=== PATIENT | female | born 1955 | race Two or more races ===

== ENCOUNTER 2017-08-15 17:47 | Inpatient (IN) | payer OTHER ==
[~2017-08-15] VITALS: Ht 165.1 cm; Wt 76.7 kg
--- NOTE | 2017-08-15 18:02 | NUR ---
BB DAUGHTER FROM HOME FOR DIZZINESS X 10AM TODAY, N/V, FATIGUE. ASSISTED PATIENT TO ED BED 07 VIA WHEELCHAIR. ALL NEEDS ARE ATTENDED, KEPT WARM AND COMFORTABLE. PENDING ER MD EVALUATION
[2017-08-15] MEDS ORDERED: MECLIZINE HCL 25 MG TABLET ONE (18:24)
[2017-08-15] MEDS ORDERED: ONDANSETRON 4 MG TAB.RAPDIS ONE (18:25)
--- NOTE | 2017-08-15 18:28 | NUR ---
PT TAKEN TO CT.
[2017-08-15] MEDS ORDERED: ONDANSETRON 4 MG TAB.RAPDIS SL ONE (18:30)
[2017-08-15] MEDS ORDERED: MECLIZINE HCL 12.5 MG TABLET PO ONE (18:30)
--- NOTE | 2017-08-15 18:30 | NUR ---
SOLAR TECHNICIAN AT FOR BLOOD DRAW.
[2017-08-15 18:41] LABS: BASOPHILS % (AUTO) 0.4 % (0.0-2.0); EOSINOPHILS # (AUTO) 0.1 /CMM (0.0-0.7); EOSINOPHILS % (AUTO) 0.8 % (0.0-6.0); HEMATOCRIT 41 % (33-45); HEMOGLOBIN 14.2 g/dL (11.5-14.8); LYMPHOCYTES # (AUTO) 1.7 /CMM (0.8-4.8); LYMPHOCYTES % (AUTO) 19.1 % (20.0-44.0); MEAN CORPUSCULAR HEMOGLOBIN 28 PG (26.0-33.0); MEAN CORPUSCULAR HGB CONC 35 g/dl (31.0-36.0); MEAN CORPUSCULAR VOLUME 81 fL (82-100); MONOCYTES # (AUTO) 0.2 /CMM (0.1-1.30); MONOCYTES % (AUTO) 2.5 % (2.0-12.0); NEUTROPHILS # (AUTO) 6.8 /CMM (1.8-8.9); NEUTROPHILS % (AUTO) 77.2 % (43.0-81.0); PLATELET COUNT (AUTO) 289 /CMM (150-450); RDW COEFFICIENT OF VARIATION 14.1 (11.5-15.0); RED BLOOD CELL COUNT(AUTO) 5.05 MIL/uL (4.0-5.2); WHITE BLOOD COUNT (AUTO) 8.8 K/uL (4.3-11.0)
--- NOTE | 2017-08-15 19:13 | NUR ---
RECEIVED REPORT FROM DAREN BARRETO FOR [facility]
[2017-08-15 19:14] LABS: CARBON DIOXIDE 24 mmol/L (21-32); CHLORIDE 107 mmol/L (98-107); CREATININE 1.1 mg/dL (0.6-1.3); GLUCOSE 121 mg/dL (74-106); POTASSIUM 4.2 mmol/L (3.5-5.1); SODIUM SERUM 141 mmol/L (136-145); UREA NITROGEN, BLOOD 20 mg/dL (7-18)
[2017-08-15 19:20] LABS: ALANINE AMINOTRANSFERASE 17 U/L (12-78); ALBUMIN 3.7 g/dL (3.4-5.0); ALKALINE PHOSPHATASE 71 U/L (46-116); ASPARTATE AMINOTRANSFERASE 17 U/L (15-37); BILIRUBIN,TOTAL 0.3 mg/dL (0.2-1.0); TOTAL PROTEIN, SERUM 8.4 g/dL (6.4-8.2)
[2017-08-15] MEDS ORDERED: ONDANSETRON HCL/PF 4 MG/2 ML VIAL ONE (19:21)
[2017-08-15 19:22] LABS: TROPONIN I < 0.017 ng/mL (0.00-0.056)
[2017-08-15] MEDS ORDERED: ONDANSETRON HCL/PF 4 MG/2 ML VIAL IVP ONE (19:30)
--- NOTE | 2017-08-15 19:59 | NUR ---
PT ASSIGNED TO [facility] 308-1
--- NOTE | 2017-08-15 20:19 | NUR ---
GAVE REPORT TO JESSI BARRETO FOR PT. GOING TO TELE ROOM 309-1
[2017-08-15] MEDS ORDERED: ACETAMINOPHEN 325 MG TABLET PO PRN (20:30)
[2017-08-15] MEDS ORDERED: ONDANSETRON HCL/PF 4 MG/2 ML VIAL IVP PRN (20:30)
[2017-08-15] MEDS ORDERED: LISI40TA4 PO (20:30)
[2017-08-15] MEDS ORDERED: IV NS 0.9% 1,000 ML IV PRN (20:30)
[2017-08-15 21:00] VITALS: BP 160/90
--- NOTE | 2017-08-15 23:00 | NUR ---
BUSINESS ACCOUNT MANAGER NOTE: RECEIVED PATIENT FROM ER, NO ACUTE DISTRESS NOTED, FAMILY AT BEDSIDE. BREATHING EVEN AND UNLABORED, NO SOB NOTED. IV TO LAC IN PLACE. ORIENTED PATIENT TO ROOM AND USE OF CALL LIGHT. BED LOCKED AND IN LOWEST POSITION, CALL LIGHT IN REACH. WILL CONTINUE TO MONITOR.
[2017-08-16] VITALS: BP 149/84
[2017-08-16 04:00] VITALS: BP 144/80
[2017-08-16 06:25] LABS: BASOPHILS # (AUTO) 0.1 /CMM (0.0-0.2); BASOPHILS % (AUTO) 0.9 % (0.0-2.0); EOSINOPHILS # (AUTO) 0.3 /CMM (0.0-0.7); EOSINOPHILS % (AUTO) 2.9 % (0.0-6.0); HEMATOCRIT 38 % (33-45); HEMOGLOBIN 12.7 g/dL (11.5-14.8); LYMPHOCYTES # (AUTO) 2.6 /CMM (0.8-4.8); LYMPHOCYTES % (AUTO) 27.2 % (20.0-44.0); MEAN CORPUSCULAR HEMOGLOBIN 28 PG (26.0-33.0); MEAN CORPUSCULAR HGB CONC 34 g/dl (31.0-36.0); MEAN CORPUSCULAR VOLUME 83 fL (82-100); MONOCYTES # (AUTO) 0.5 /CMM (0.1-1.30); MONOCYTES % (AUTO) 5.6 % (2.0-12.0); NEUTROPHILS % (AUTO) 63.4 % (43.0-81.0); PLATELET COUNT (AUTO) 255 /CMM (150-450); RDW COEFFICIENT OF VARIATION 15.1 (11.5-15.0); RED BLOOD CELL COUNT(AUTO) 4.53 MIL/uL (4.0-5.2); WHITE BLOOD COUNT (AUTO) 9.5 K/uL (4.3-11.0)
--- NOTE | 2017-08-16 06:45 | NUR ---
HOGSHEAD HEAD MATCHER NOTE: PATIENT RESTING IN BED, NO ACUTE DISTRESS NOTED, FAMILY AT BEDSIDE. BREATHING EVEN AND UNLABORED, NO SOB NOTED. IV TO LAC IN PLACE, INFUSING NS AT 80 ML/HR. BED LOCKED AND IN LOWEST POSITION, CALL LIGHT IN REACH. WILL ENDORSE TO DAY NURSE TO CONTINUE WITH PLAN OF CARE.
[2017-08-16 06:50] LABS: ALBUMIN 3.1 g/dL (3.4-5.0); BILIRUBIN,TOTAL 0.4 mg/dL (0.2-1.0); CALCIUM, SERUM 9.6 mg/dL (8.5-10.1); CREATININE 1.1 mg/dL (0.6-1.3); MAGNESIUM 1.8 mg/dL (1.8-2.4); PHOSPHORUS 3.9 mg/dL (2.5-4.9); POTASSIUM 3.9 mmol/L (3.5-5.1); TOTAL PROTEIN, SERUM 7.5 g/dL (6.4-8.2)
[2017-08-16 07:00] LABS: THYROID STIMULATING HORMONE 1.439 uIU/mL (0.358-3.74)
--- NOTE | 2017-08-16 07:30 | NUR ---
CABIN CLEANER NOTES PATIENT RECEIVED AWAKE, ALERT AND ORIENTED. VERBALLY RESPONSIVE AND RESPONDS TO VERBAL AND TACTILE STIMULI. ABLE TO MAKE NEEDS KNOWN AND FOLLOW SIMPLE INSTRUCTIONS. PATIENT BREATHING EVEN AND UNLABORED. NO SOB OR CONGESTION NOTED. IV SITE IN PLACE ON LEFT AC, NO BLEEDING OR SWELLING NOTED. WILL CONTINUE TO MONITOR. CALL LIGHT WITHIN EASY REACH
[2017-08-16 08:00] VITALS: BP 142/75
--- NOTE | 2017-08-16 10:00 | NUR ---
SECURITY REP NOTES INSERTED NEW IV SITE ON LEFT FOREARM, # 22 NEEDLE, 1 ATTEMPT, INTACT AND PATENT, NO SWELLING OR IRRITATION NOTED. ONGOING IV HYDRATION WITH NS AT 80 CC/HR. REMOVED IV FROM LEFT AC. MINIMAL BLEEDING NOTED, DRESSING APPLIED. NO COMPLAIN OF PAIN OR DISCOMFORT. WILL CONTINUE TO MONITOR.
[2017-08-16 16:00] VITALS: BP 162/91
--- NOTE | 2017-08-16 18:25 | NUR ---
MS RN NOTES PATIENT TRANSFERRED ROOM, MOVED FROM 309-1 TO 205-2. ASSISTED WITH TRANSFER. NO INJURY DURING TRANSFER. PATIENT REMAINS AWAKE, ALERT, VERBALLY RESPONSIVE AND RESPONDS TO VERBAL AND TACTILE STIMULI. BED LOCKED AND IN LOW POSITION, BILATERAL UPPER SIDE RAILS UP AND LOCKED. WILL CONTINUE TO MONITOR
--- NOTE | 2017-08-16 19:28 | NUR ---
MS RN NOTES PATIENT RESTING INSIDE ROOM, AWAKE, ALERT AND ORIENTED, VERBALLY RESPONSIVE AND RESPONDS TO VERBAL AND TACTILE STIMULI, ABLE TO MAKE NEEDS KNOWN AND FOLLOW SIMPLE INSTRUCTIONS. NO SOB OR ACUTE DISTRESS NOTED AT THIS TIME. DENIES ANY PAIN OR DISCOMFORT. NO CHANGES IN LOC NOTED. PATIENT CALM AND RELAXED. WILL CONTINUE TO MONITOR. RESIDENT KEPT CLEAN, DRY AND COMFORTABLE. PROVIDED WITH CALM, SAFE, HAZARD-FREE ENVIRONMENT. CALL LIGHT PLACED WITHIN EASY REACH
--- NOTE | 2017-08-16 19:30 | NUR ---
MS RN NOTE: PATIENT RESTING IN BED, NO ACUTE DISTRESS NOTED, FAMILY AT BEDSIDE. BREATHING EVEN AND UNLABORED, NO SOB NOTED. IV TO LFA IN PLACE, INFUSING NS AT 80 ML/HR. BED LOCKED AND IN LOWEST POSITION, CALL LIGHT IN REACH. WILL CONTINUE TO MONITOR.
[2017-08-16 20:00] VITALS: BP 145/85
--- NOTE | 2017-08-16 20:49 | NUR ---
TEXTED DR. VENCES FOR MRI APPROVAL.
--- NOTE | 2017-08-16 20:50 | NUR ---
MRI APPROVED IT WILL BE DONE TOMORROW. 08/17/17
--- NOTE | 2017-08-16 23:30 | NUR ---
MS RN NOTE: INFORMED PATIENT THAT SHE IS TO HAVE MRI OF BRAIN TOMORROW WITH AND WITHOUT CONTRAST. MRI QUESTIONNAIRE ANSWERED, SIGNED AND FILED IN THE CHART. WILL CONTINUE TO MONITOR.
--- NOTE | 2017-08-17 06:45 | NUR ---
TAVERN OPERATOR NOTE: PATIENT RESTING IN BED, NO ACUTE DISTRESS NOTED. BREATHING EVEN AND UNLABORED, NO SOB NOTED. IV TO LAC IN PLACE. BED LOCKED AND IN LOWEST POSITION, CALL LIGHT IN REACH. WILL ENDORSE TO DAY NURSE TO CONTINUE WITH PLAN OF CARE.
--- NOTE | 2017-08-17 07:30 | NUR ---
RN MS NOTES PT IN BED, AWAKE, ALERT AND ORIENTED, DENIES PAIN, RESPIRATIONS NORMAL, STATED THAT SHE IS FEELING BETTER, NO COMPLAINT OF DIZZINESS, IV FLUIDS INFUSING WELL, CALL LIGHT WITHIN REACH, NEEDS ATTENDED.
[2017-08-17 08:00] VITALS: BP 174/93
--- NOTE | 2017-08-17 11:20 | NUR ---
RN MS NOTES PT BACK FROM MRI, SEEN BY EWELINA PHYSICIAN'S AIDE, PLAN OF CARE DISCUSSED WITH PT, EWELINA INFORMED OF ELEVATED BP, SAID TO HOLD OFF BP MEDS.
[2017-08-17] MEDS ORDERED: GADOVERSETAMIDE 2.5 MMOL/5 ML VIAL IJ ONE (12:16)
[2017-08-17] MEDS ORDERED: GADOVERSETAMIDE 5 MMOL/10 ML VIAL IJ ONE (12:16)
[2017-08-17] MEDS ORDERED: LEVE500T9 PO (13:14)
--- NOTE | 2017-08-17 13:35 | NUR ---
RN MS NOTES PT STATED SHE WANTS TO GO HOME, EWELINA KENNEDY INFORMED, NEW PRESCRIPTION FOR [place] GIVEN, DISCHARGE AND MEDICATION INSTRUCTIONS PROVIDED TO PT, VERBALIZED UNDERSTANDING, PT REFUSED FLU VACCINE AND SKIN CHECK, STATED SHE WOULD REALLY LIKE TO GO NOW, BELONGINGS ACCOUNTED FOR, PICKED UP BY DAUGHTERS, PT IS AMBULATORY WITH STEADY GAIT, NO COMPLAINT OF PAIN OR DIZZINESS, NOT IN DISTRESS, LEFT IN STABLE CONDITION.
== END 2017-08-17 13:35 | disposition home or self-care (01) | DRG 41 ==
LOC: ER 17:50 → TELE 20:02 → MED 08-16 08:48 → MEDSG2 08-16 19:05
PROVIDERS: ADMIT Nurse Practitioner Acute Care; ATTEND Nurse Practitioner Acute Care
DX: C79.31 Secondary malignant neoplasm of brain (principal); N17.0 Acute kidney failure with tubular necrosis; I10 Essential (primary) hypertension; E86.0 Dehydration; R73.03 Prediabetes; Z85.3 Personal history of malignant neoplasm of breast; Z90.11 Acquired absence of right breast and nipple
CPT/HCPCS: 36415; 70450-TC; 70553-TC; 80048-TC; 80053-TC; 80061-TC; 80076-TC; 83735-TC; 84100-TC; 84443-TC; 84484-TC; 85025-TC; 87081-TC; 93307-TC; A4606; A9579; J2405; J7030; J8597; Q0162; Z7610